=== PATIENT | male | born 1950 | race Caucasian/White ===

== ENCOUNTER 2018-04-07 21:20 | Emergency (ER) | payer OTHER ==
[~2018-04-07] VITALS: Ht 167.6 cm; Wt 60.8 kg
[2018-04-07] MEDS ORDERED: METFORMIN HCL500 MG (21:29)
[2018-04-07] MEDS ORDERED: DIOVAN HCT 1601 EACH (21:29)
[2018-04-07] MEDS ORDERED: LIPITOR40 MG (21:29)
[2018-04-08] MEDS ORDERED: PEPCID AC20 MG PO (00:43)
[2018-04-08] MEDS ORDERED: MEDROLPACK PO (00:43)
[2018-04-08] MEDS ORDERED: ALL DAY ALLERGY10 M3 PO (00:43)
[2018-04-09] MEDS ORDERED: PREDNISONE20 MG PO (11:28)
[2018-04-09] MEDS ORDERED: BENADRYL50 MG PO (11:28)
== END 2018-04-08 00:58 | disposition home or self-care (01) ==
LOC: ER 21:20
DX: R10.13 Epigastric pain (principal); T50.995A Adverse effect of other drugs, medicaments and biological substances, initial encounter; Y92.89 Other specified places as the place of occurrence of the external cause

== ENCOUNTER 2018-04-09 06:09 | Emergency (ER) | payer OTHER ==
[~2018-04-09] VITALS: Ht 167.6 cm; Wt 59.0 kg
[~2018-04-09 06:09] MED LIST: ALL DAY ALLERGY10 M3 PO; DIOVAN HCT 1601 EACH; LIPITOR40 MG; MEDROLPACK PO; METFORMIN HCL500 MG; PEPCID AC20 MG PO
[2018-04-09] MEDS ORDERED: PREDNISONE20 MG PO (11:28)
[2018-04-09] MEDS ORDERED: BENADRYL50 MG PO (11:28)
== END 2018-04-09 13:39 | disposition home or self-care (01) ==
LOC: ER 06:09
DX: L50.8 Other urticaria (principal)

== ENCOUNTER 2018-04-10 20:30 | Emergency (ER) | payer OTHER ==
[~2018-04-10] VITALS: Ht 167.6 cm; Wt 59.0 kg
[~2018-04-10 20:30] MED LIST changes: +BENADRYL50 MG PO; +PREDNISONE20 MG PO
== END 2018-04-11 14:33 | disposition home or self-care (01) ==
LOC: ER 20:30
DX: K29.60 Other gastritis without bleeding (principal)

== ENCOUNTER 2025-04-20 18:57 | Emergency (ER) | payer OTHER ==
[~2025-04-20] VITALS: Ht 165.1 cm; Wt 55.8 kg
[2025-04-20] MEDS ORDERED: 0.9 % SODIUM CHLORIDE 1,000 ML IV STA (22:16)
[2025-04-20] MEDS ORDERED: MORPHINE SULFATE 4 MG/ML VIAL IV STA (22:17)
[2025-04-20] MEDS ORDERED: HYOSCYAMINE SULFATE 0.125 MG TAB.SUBL SL ONE (22:30)
[2025-04-20 23:16] LABS: BASO % 0.3 % (0.1-1.2); EOS # 0.06 (0.04-0.54); EOS % 0.4 % (0.7-7.0); LYMPH # 4.44 (1.18-3.74); LYMPH % 27.9 % (19.3-53.1); MEAN PLATELET VOLUME 10.10 fl (9.4-12.4); MONO # 0.92 (0.24-0.82); MONO % 5.8 % (4.7-12.5); NEUT # 10.37 (1.56-6.13); NEUT % 65.3 % (34.0-71.1); RED CELL DISTRIBUTION WIDTH 13.0 % (11.6-14.4)
[2025-04-20 23:28] LABS: INR 1.03
[2025-04-20 23:31] LABS: ALT/SGPT 15.0 U/L (12-78); AST/SGOT 9.0 U/L (15-37); BILIRUBIN TOTAL 1.49 mg/dL (0.3-1.2); BUN CREA RATIO 13.0 (7.0-25.0); CREATININE SERUM 0.9 mg/dL (0.70-1.30); GFR 82.71; GLOBULINA 3.0 G/DL (2.4-3.5); GLUCOSE FASTING 152.0 mg/dL (65-100); OSMOLALITY SERUM 275.0 MOSM/KG (275-295)
[2025-04-21] MEDS ORDERED: PIPERACILLIN/TAZOBACTAM SODIUM 3.375 GM VIAL IV STA (00:01)
[2025-04-21] MEDS ORDERED: PROMETHAZINE HCL 25 MG/ML AMPUL IM STA (03:13)
[2025-04-21] MEDS ORDERED: FAMOTIDINE/PF 20 MG/2 ML VIAL IV PUSH STA (03:14)
[2025-04-21] MEDS ORDERED: MIRALAX17 GM PO (08:36)
== END 2025-04-21 10:00 ==
LOC: ER 18:57
DX: K56.41 Fecal impaction (principal); K44.9 Diaphragmatic hernia without obstruction or gangrene
CPT/HCPCS: 36415; 74177; Q9965